=== PATIENT | male | born 1995 ===

== ENCOUNTER 2017-11-20 12:33 | Emergency (ER) | payer OTHER ==
[2017-11-20 15:19] VITALS: BP 111/77
--- NOTE | 2017-11-20 15:36 | ED ---
Respiratory - HPI Summary HPI Summary: 22 yr old male with the complaint of fever, chills, muscle aches, runny nose, cough. His girlfriend was diagnosed with flu last week by test. He has no other complaints. - History of Current Complaint Chief Complaint: UCGeneralIllness Stated Complaint: FLU SXS Time Seen by Provider: 11/20/17 15:25 Pain Intensity: 0 - Allergy/Home Medications Allergies/Adverse Reactions: Allergies Allergy/AdvReac Type Severity Reaction Status Date / Time No Known Allergies Allergy Verified 11/20/17 15:13 Home Medications: Home Medications Atomoxetine HCl [Strattera] 1 cap DAILY 11/20/17 [History Confirmed 11/20/17] cloNIDine HCl [Clonidine HCl ER 0.1 MG] 1 tab BEDTIME 11/20/17 [History Confirmed 11/20/17] PMH/Surg Hx/FS Hx/Imm Hx Infectious Disease History: No Infectious Disease History: Denies: History Other Infectious Disease, Traveled Outside the [place] in Last 30 Days - Family History Known Family History: Positive: None - Social History Alcohol Use: None Substance Use Type: Reports: None Smoking Status (MU): Never Smoked Tobacco Review of Systems Positive: Fever, Chills, Fatigue Positive: Sore Throat, Nasal Discharge Positive: Cough Positive: Myalgia All Other Systems Reviewed And Are Negative: Yes Physical Exam Triage Information Reviewed: Yes Vital Signs On Initial Exam: Initial Vitals Temp Pulse Resp BP Pulse Ox 96.7 F 103 16 111/77 96 11/20/17 15:15 11/20/17 15:15 11/20/17 15:15 11/20/17 15:15 11/20/17 15:15 Vital Signs Reviewed: Yes Appearance: Positive: Well-Appearing, No Pain Distress Skin: Positive: Warm, Skin Color Reflects Adequate Perfusion Head/Face: Positive: Normal Head/Face Inspection Eyes: Positive: EOMI ENT: Positive: Pharyngeal erythema, Nasal congestion, Nasal drainage, TMs normal Respiratory/Lung Sounds: Positive: Clear to Auscultation, Breath Sounds Present Cardiovascular: Positive: RRR. Negative: Murmur Abdomen Description: Positive: Nontender Musculoskeletal: Positive: Strength/ROM Intact Neurological: Positive: Sensory/Motor Intact, Alert, Oriented to Person Place, Time, CN Intact II-III Psychiatric: Positive: Normal - Mitra Coma Scale Best Eye Response: 4 - Spontaneous Best Motor Response: 6 - Obeys Commands Best Verbal Response: 5 - Oriented Coma Scale Total: 15 Diagnostics - Vital Signs Vital Signs Temp Pulse Resp BP Pulse Ox 11/20/17 15:15 96.7 F 103 16 111/77 96 - Laboratory Lab Statement: Any lab studies that have been ordered have been reviewed, and results considered in the medical decision making process. Disposition - Course Course Of Treatment: 22 yr old with influenza in his household with influenza symptoms. Rx with tamiflu - Diagnoses Provider Diagnoses: Influenza Discharge - Discharge Plan Condition: Good Disposition: HOME Prescriptions: Oseltamivir CAP* [Tamiflu CAP*] 75 mg PO BID #10 cap Patient Education Materials: Influenza (ED) Forms: *Work Release Referrals: [facility] [Outside] No Primary Care Phys,[facility] [Primary Care Provider] -
== END 2017-11-20 15:37 | disposition home or self-care (01) ==
LOC: UCCORT 12:33
DX: J11.1 Influenza due to unidentified influenza virus with other respiratory manifestations (principal); Z20.828 Contact with and (suspected) exposure to other viral communicable diseases
CPT/HCPCS: 99202; G0463